=== PATIENT | female | born 1995 | race Caucasian/White ===

== ENCOUNTER → 2017-09-19 | Outpatient (CLI) | payer OTHER ==
[2017-09-22 01:14] LABS: CHLAMYDIA TRACHOMATIS, NAA Negative (Negative); NEISSERIA GONORRHOEAE, NAA Negative (Negative)
== END | disposition home or self-care (01) ==
LOC: LAB 17:06 → LAB SHORT 17:06
PROVIDERS: Obstetrics & Gynecology
DX: Z34.00 Encounter for supervision of normal first pregnancy, unspecified trimester (principal); Z11.3 Encounter for screening for infections with a predominantly sexual mode of transmission
CPT/HCPCS: 87491; 87591; G0123

== ENCOUNTER → 2018-03-07 | Outpatient (CLI) | payer OTHER | END | disposition home or self-care (01) | LOC: LAB 12:28 → LAB SHORT 12:28 | DX: Z34.00 Encounter for supervision of normal first pregnancy, unspecified trimester (principal) | CPT/HCPCS: 87081; 87653 ==

== ENCOUNTER 2018-04-06 07:02 | Inpatient (IN) | payer OTHER ==
[~2018-04-06] VITALS: Ht 162.6 cm; Wt 89.0 kg
[2018-04-06 09:17] LABS: BASOPHILS ABSOLUTE AUTO 0.03 K/mm3 (0.00-0.23); BASOPHILS PERCENT AUTO 0 % (0-2); EOSINOPHILS PERCENT AUTO 1 % (0-6); Hematocrit 37.9 % (33.0-51.0); Hemoglobin 12.3 g/dL (11.5-16.0); IMMATURE GRAN ABSOLUTE AUTO 0.16 K/mm3 (0.00-0.10); IMMATURE GRAN PERCENT AUTO 1 % (0-1); LYMPHOCYTES PERCENT AUTO 12 % (21-46); MONOCYTES ABSOLUTE AUTO 0.86 K/mm3 (0.16-1.47); MONOCYTES PERCENT AUTO 7 % (4-13); Mean Corpuscular HGB 29.8 pg (26.0-34.0); Mean Corpuscular HGB Conc 32.5 g/dL (31.5-36.5); Mean Corpuscular Volume 92 fL (80-100); Mean Platelet Volume 11.6 fL (9.1-12.4); NEUTROPHILS ABSOLUTE AUTO 10.21 K/mm3 (1.96-9.15); NEUTROPHILS PERCENT AUTO 79 % (41-73); Platelet Count 246 K/mm3 (150-400); RDW Coefficient Variation 12.8 % (11.7-14.2); RDW Standard Deviation 42.9 fL (35.1-46.3); Red Blood Cell Count 4.13 M/mm3 (3.80-5.20); White Blood Cell Count 12.86 K/mm3 (4.00-11.30)
[2018-04-07 06:05] LABS: Hematocrit 32.1 % (33.0-51.0); Hemoglobin 10.4 g/dL (11.5-16.0); Mean Corpuscular HGB 30.7 pg (26.0-34.0); Mean Corpuscular HGB Conc 32.4 g/dL (31.5-36.5); Mean Platelet Volume 11.2 fL (9.1-12.4); Platelet Count 212 K/mm3 (150-400); RDW Coefficient Variation 13.1 % (11.7-14.2); RDW Standard Deviation 45.2 fL (35.1-46.3); Red Blood Cell Count 3.39 M/mm3 (3.80-5.20); White Blood Cell Count 17.54 K/mm3 (4.00-11.30)
[2018-04-07 06:07] LABS: Mean Corpuscular Volume 95 fL (80-100)
--- NOTE | 2018-04-07 07:45 | NUR ---
PT SOUND ASLEEP IN BED.
--- NOTE | 2018-04-07 11:09 | NUR ---
PLAN TO STAY ANOTHER NIGHT, MOM BOTTLE FEEDING, DISCUSSED BRF, WANTS TO TRY WHEN AT HOME. WILL HAVE LACATION COME BY TODAY.
--- NOTE | 2018-04-07 11:17 | NUR ---
IN TO ROUND, PT ASLEEP SITTING UP HOLDING NB. ENCOURGED TO PUT NB IN CRIB WHEN SLEEPING, PT AGREES AND RN PLACED NB IN BACK IN CRIB. REPORTS PAIN BETTER, LIGHTS OUT TO REST.
--- NOTE | 2018-04-07 15:05 | NUR ---
CONSULT, BABY IS LESS THAN 18 HOURS OLD AND STARTING TO WAKEN FOR FEEDINGS. HAS BEEN BOTTLE FEEDING FORMULA ALL BUT FIRST FEEDING, BUT SHE WOULD LIKE TO BF BABY ONCE SHE GOES HOME. INSTRUCT/DEMO SELF EBM, EASY TO EXPRESS, BUT NIPPLE IS TENDING TO TRY AND INVERT WHEN AREOLA PRESSURE APPLIED AND VERY SHORT SHANKED. ATTEMPTED LATCHING BABY, SHE TRIED BUT COULD NOT LATCH, TISSUE IS FIRMER BEHIND NIPPLE AND BABY CAN'T GET ENOUGH IN HER MOUTH. INSTRUCT/DEMO USE OF SHIELD AND LATER WEANING. BABY ABLE TO LATCH QUICKLY ON SHIELD AND INSTRUCT HOW TO FURTHER WIDEN THE LATCH. HANDLING BABY WELL. VERY PENDULOUS BREASTS, INSTRUCT IN USING SUPPORT TOWEL UNDER BREAST SO THAT NIPPLE IS EASIER FOR HER TO SEE. INSTRUCT IN CHANGES TO EXPECT DURING THE FIRST WEEK WITH BABY AND WITH FEEDINGS AND REFERRED TO BF BROCHURE AND PAGE 18 OF BF BOOKLET. DENIES FURTHER QUESTIONS.
--- NOTE | 2018-04-07 19:21 | NUR ---
BEDSIDE REPORT. NO ACTUE CHNAGES, PT VERY TEARY TONIGHT.
[2018-04-08] MEDS ORDERED: IBUP800 PO (09:24)
--- NOTE | 2018-04-08 10:15 | NUR ---
No acute changes t/o shift. Pt denies additional questions/concerns. Pt d/c'd home ambulatory to care of family.
== END 2018-04-08 10:03 | disposition home or self-care (01) | DRG 807 ==
LOC: OBS 07:02 → BC 07:02 → OBS 08:18 → BC 08:20
PROVIDERS: ADMIT Obstetrics & Gynecology
PROC: 10E0XZZ Delivery of Products of Conception, External Approach (ICD-10-PCS; principal; 2018-04-06)
PROC: 3E0R3BZ Introduction of Anesthetic Agent into Spinal Canal, Percutaneous Approach (ICD-10-PCS; 2018-04-06)
DX: O80 Encounter for full-term uncomplicated delivery (principal); Z37.0 Single live birth; Z3A.40 40 weeks gestation of pregnancy
CPT/HCPCS: 36415; 51702; 85025; 85027; 87210; J0290; J1885; J2210; J2590; J3010; J7120

== ENCOUNTER → 2019-01-16 | Outpatient (CLI) | payer OTHER ==
[~2019-01-16] MED LIST: IBUP800 PO
[2019-01-17 12:18] LABS: Candida species (DNA Probe) Negative (NEGATIVE); G. vaginalis (DNA Probe) Positive (NEGATIVE); T. vaginalis (DNA Probe) Negative (NEGATIVE)
[2019-01-18 19:05] LABS: CHLAMYDIA TRACHOMATIS, NAA Negative (Negative); NEISSERIA GONORRHOEAE, NAA Negative (Negative)
== END | disposition home or self-care (01) ==
LOC: LAB 15:49 → LAB SHORT 15:49
PROVIDERS: Advanced Practice Midwife
DX: R10.2 Pelvic and perineal pain (principal)
CPT/HCPCS: 87480; 87491; 87510; 87591; 87660

== ENCOUNTER → 2020-09-24 | Outpatient (CLI) | payer OTHER | END | disposition home or self-care (01) | LOC: LAB SHORT 10:24 → LAB 10:24 | DX: O09.93 Supervision of high risk pregnancy, unspecified, third trimester (principal) | CPT/HCPCS: 87081; 87150 ==

== ENCOUNTER 2020-10-24 16:14 | Inpatient (IN) | payer OTHER ==
[~2020-10-24] VITALS: Ht 162.6 cm; Wt 93.1 kg
[2020-10-24 17:59] LABS: BASOPHILS ABSOLUTE AUTO 0.05 K/mm3 (0.00-0.23); BASOPHILS PERCENT AUTO 1 % (0-2); EOSINOPHILS PERCENT AUTO 1 % (0-6); Hematocrit 36.3 % (33.0-51.0); Hemoglobin 11.8 g/dL (11.5-16.0); IMMATURE GRAN ABSOLUTE AUTO 0.14 K/mm3 (0.00-0.10); IMMATURE GRAN PERCENT AUTO 1 % (0-1); LYMPHOCYTES ABSOLUTE AUTO 1.65 K/mm3 (0.84-5.20); LYMPHOCYTES PERCENT AUTO 16 % (21-46); MONOCYTES ABSOLUTE AUTO 0.64 K/mm3 (0.16-1.47); MONOCYTES PERCENT AUTO 6 % (4-13); Mean Corpuscular HGB Conc 32.5 g/dL (31.5-36.5); Mean Corpuscular Volume 89 fL (80-100); Mean Platelet Volume 11.2 fL (9.1-12.4); NEUTROPHILS ABSOLUTE AUTO 7.89 K/mm3 (1.96-9.15); NEUTROPHILS PERCENT AUTO 75 % (41-73); Platelet Count 256 K/mm3 (150-400); RDW Coefficient Variation 13.5 % (11.7-14.2); RDW Standard Deviation 44.4 fL (35.1-46.3); Red Blood Cell Count 4.07 M/mm3 (3.80-5.20); White Blood Cell Count 10.47 K/mm3 (4.00-11.30)
[2020-10-24 19:40] LABS: SARS-Cov-2 (COVID-19) PCR, MMC NEGATIVE (NEGATIVE)
[2020-10-24] MEDS ORDERED: PRENATAL TABLE1 EAC2 PO (22:12)
[2020-10-26 05:54] LABS: BASOPHILS ABSOLUTE AUTO 0.06 K/mm3 (0.00-0.23); BASOPHILS PERCENT AUTO 0 % (0-2); EOSINOPHILS ABSOLUTE AUTO 0.09 K/mm3 (0.00-0.68); EOSINOPHILS PERCENT AUTO 1 % (0-6); Hematocrit 33.9 % (33.0-51.0); Hemoglobin 10.7 g/dL (11.5-16.0); IMMATURE GRAN ABSOLUTE AUTO 0.15 K/mm3 (0.00-0.10); IMMATURE GRAN PERCENT AUTO 1 % (0-1); LYMPHOCYTES ABSOLUTE AUTO 1.96 K/mm3 (0.84-5.20); LYMPHOCYTES PERCENT AUTO 15 % (21-46); MONOCYTES ABSOLUTE AUTO 0.92 K/mm3 (0.16-1.47); MONOCYTES PERCENT AUTO 7 % (4-13); Mean Corpuscular HGB 28.6 pg (26.0-34.0); Mean Corpuscular HGB Conc 31.6 g/dL (31.5-36.5); Mean Corpuscular Volume 91 fL (80-100); Mean Platelet Volume 11.3 fL (9.1-12.4); NEUTROPHILS ABSOLUTE AUTO 10.18 K/mm3 (1.96-9.15); NEUTROPHILS PERCENT AUTO 76 % (41-73); Platelet Count 229 K/mm3 (150-400); RDW Coefficient Variation 13.3 % (11.7-14.2); RDW Standard Deviation 44.6 fL (35.1-46.3); Red Blood Cell Count 3.74 M/mm3 (3.80-5.20); White Blood Cell Count 13.36 K/mm3 (4.00-11.30)
[2020-10-26] MEDS ORDERED: IBUP800 PO (15:46)
[2020-10-26] MEDS ORDERED: DOCU100 PO (15:47)
--- NOTE | 2020-10-26 16:25 | NUR ---
dc instructions given, verbalize understanding. will follow up with dr angeles within a few weeks. will also follow up here at [facility] tuesday at [address] rn for ppfu.
== END 2020-10-26 16:33 | disposition home or self-care (01) | DRG 807 ==
LOC: OBS 16:14 → BC 18:10
PROVIDERS: ADMIT Obstetrics & Gynecology
PROC: 10H07YZ Insertion of Other Device into Products of Conception, Via Natural or Artificial Opening (ICD-10-PCS; principal; 2020-10-25)
PROC: 10E0XZZ Delivery of Products of Conception, External Approach (ICD-10-PCS; 2020-10-25)
PROC: 0KQM0ZZ Repair Perineum Muscle, Open Approach (ICD-10-PCS; 2020-10-25)
PROC: 3E0R3BZ Introduction of Anesthetic Agent into Spinal Canal, Percutaneous Approach (ICD-10-PCS; 2020-10-25)
PROC: 00HU33Z Insertion of Infusion Device into Spinal Canal, Percutaneous Approach (ICD-10-PCS; 2020-10-25)
DX: O76 Abnormality in fetal heart rate and rhythm complicating labor and delivery (principal); Z37.0 Single live birth; Z3A.39 39 weeks gestation of pregnancy; Z88.8 Allergy status to other drugs, medicaments and biological substances; Z91.018 Allergy to other foods; O36.63X0 Maternal care for excessive fetal growth, third trimester, not applicable or unspecified; O70.1 Second degree perineal laceration during delivery
CPT/HCPCS: 36415; 51702; 59025; 81003; 85025; 86850; 86900; 86901; A9270; J1885; J2001; J2405; J2590; J3010; J7120; U0004